=== PATIENT | female | born 1960 | race Hispanic/Latino ===

== ENCOUNTER 2016-12-18 06:44 | Day surgery (SDC) | payer OTHER ==
[2016-12-18 07:14] VITALS: BMI 20.1
[2016-12-18] MEDS ORDERED: Lidocaine Hydrochloride 5 ML INJ ONE (08:06)
[2016-12-18] MEDS ORDERED: Propofol 10 mg/ml Inj (20 ML) ONE (08:06)
--- NOTE | 2016-12-18 08:19 | CP.SDSHP ---
Same Day Surgery H & P - History Proposed Procedure: Screening colonoscoy, high risk Pre-Op Diagnosis: Family history of colon cancer - Allergies Allergies: Allergies No Known Allergies Allergy (Verified 05/17/15 08:19) - Current Medications Current Medications: None - Physical Exam General Appearance: WD WN female in NAD Vital Signs: Vital Signs 12/18/16 07:13 Temperature 98 F Pulse Rate 65 Respiratory 19 Rate Blood Pressure 134/67 O2 Sat by Pulse 97 Oximetry Mental Status: Alert & Oriented x3 Neuro: WNL Heart: WNL Lungs: WNL GI: WNL - {Optional Preform as Required} Abdomen: WNL - Impression Impression: Family history of colon cancer Pt. Evaluated Today:Candidate for Anesthesia & Procedure: Yes - Date & Time Date: 12/18/16 Time: 08:19 Short Stay Discharge - Short Stay Discharge Admitting Diagnosis/Reason for Visit: FAMILY HISTORY OF MALIGNANCY Disposition: HOME/ ROUTINE
[2016-12-18 08:23] VITALS: O2SAT 100
[2016-12-18] MEDS ORDERED: Lactated Ringer's 1,000 ML IV SCH (08:30)
[2016-12-18 09:00] VITALS: TEMP 98.1
[2016-12-18 09:27] VITALS: BP 130/74; PULSE 59; RESP 15
== END 2016-12-18 09:25 | disposition home or self-care (01) ==
LOC: C.ENDO 06:44
PROVIDERS: ATTEND Internal Medicine Gastroenterology
DX: Z12.11 Encounter for screening for malignant neoplasm of colon (principal); D12.0 Benign neoplasm of cecum; K64.0 First degree hemorrhoids; Z80.0 Family history of malignant neoplasm of digestive organs

== ENCOUNTER 2019-01-24 13:51 | Outpatient (CLI) | payer OTHER | END 2019-01-24 13:52 | disposition home or self-care (01) | LOC: C.LAB 13:51 | DX: Z12.4 Encounter for screening for malignant neoplasm of cervix (principal); Z11.51 Encounter for screening for human papillomavirus (HPV) ==